=== PATIENT | female | born 1965 | race Two or more races ===

== ENCOUNTER → 2024-06-07 | Outpatient (CLI) | payer MEDICAID, SELFPAY ==
--- NOTE | 2024-06-07 09:15 | XR_ITS ---
Examination: Breast ultrasound complete, bilateral Date and time of exam: June 07, 2024 0926 hours INDICATIONS: Painful lump in the right breast 6:00 position note is beginning 3 years ago Technique: Real-time grayscale ultrasonographic imaging bilateral breasts, including all 4 quadrants as well as nipple retroareolar and axillary regions. Findings: Sonographic images right breast 3:00 cyst 16 x 15 mm 7:00 oval mass hyperechoic 9 x 10 mm Sonographic images left breast Retroareolar hyperechoic nodule circumscribed 5 x 5 mm IMPRESSION: BI-RADS Category 3: Probably benign findings One additional 6 month bilateral breast sonography follow-up is needed to document stability of solid nodules described above
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
== END | disposition home or self-care (01) ==
PROVIDERS: PCP Physician Assistant; Referring Provider Physician Assistant; Visit Provider Physician Assistant
DX: R92.323 Mammographic fibroglandular density, bilateral breasts (principal); N63.42 Unspecified lump in left breast, subareolar; N63.13 Unspecified lump in the right breast, lower outer quadrant; N60.01 Solitary cyst of right breast
CPT/HCPCS: 76641; 77062; 77066; G0279